=== PATIENT | female | born 1985 | race African-American/Black ===

== ENCOUNTER 2017-11-13 05:00 | Emergency (ER) | payer MEDICAID ==
[~2017-11-13] VITALS: Ht 165.1 cm; Wt 64.0 kg
[2017-11-13] MEDS ORDERED: MORPHINE SULFATE 4 MG/ML CPJ (NOT FOR IM USE) IV STA (05:56)
[2017-11-13] MEDS ORDERED: ONDANSETRON HCL 4MG/2ML VIAL IV STA (05:56)
[2017-11-13] MEDS ORDERED: SODIUM CHLORIDE 0.9% 1,000 ML IV ONE (05:56)
[2017-11-13 06:08] LABS: BASOPHILS % 0.3 % (0.0-2.0); HEMATOCRIT. 35.7 % (36.0-48.0); HEMOGLOBIN. 11.9 g/dL (12.0-16.0); INR 1.2; MEAN CORPUSCULAR HEMOGLOBIN 32.7 pg (28.0-32.0); MEAN CORPUSCULAR VOLUME 98.2 fL (81.0-99.0); MEAN PLATELET VOLUME 8.8 fl (7.4-10.4); NEUTROPHILS % 73.7 % (40.0-76.0); PLATELET 286 x1000/uL (130-400); RED BLOOD CELL COUNT 3.64 mill/uL (4.2-5.4); RED CELL DISTRIBUTION WIDTH 14.5 % (11.6-14.6)
[2017-11-13 06:09] LABS: CHLORIDE 99 mEq/L (98-107)
[2017-11-13 06:16] LABS: CLARITY URINE TURBID (CLEAR); COLOR URINE DARK YELLOW (YELLOW); KETONES URINE TRACE (NEGATIVE); LEUKOCYTE ESTERASE URINE 1+ (NEGATIVE); NITRITE URINE NEGATIVE (NEGATIVE); OCCULT BLOOD URINE 3+ (NEGATIVE); PH URINE 5.5 (4.5-8.0); PROTEIN URINE 2+ (NEGATIVE); SPECIFIC GRAVITY URINE 1.024 (1.005-1.030)
[2017-11-13 06:17] LABS: CARBON DIOXIDE 28 mEq/L (21-32)
[2017-11-13] MEDS ORDERED: IOHEXOL-300 100 ML BOTTLE ONE (06:40)
[2017-11-13] MEDS ORDERED: METRONIDAZOLE 500 MG PREMIX 100 ML IV ONE (10:15)
[2017-11-13] MEDS ORDERED: DOXYCYCLINE 100 MG in DEXT 5% WATER 100 ML IV SCH (10:15)
[2017-11-13] MEDS ORDERED: CEFOXITIN SODIUM 2 G in DEXT 5% WATER 100 ML IV SCH (10:15)
[2017-11-13 13:01] VITALS: BP 118/68
== END 2017-11-13 13:03 | disposition home or self-care (01) ==
LOC: ER 08:30
DX: N73.0 Acute parametritis and pelvic cellulitis (principal); N70.93 Salpingitis and oophoritis, unspecified
CPT/HCPCS: 36415; 71010; 74177; 76830; 76856; 80053; 81001; 81025; 83690; 84484; 85025; 85610; 87040; 87077; 87086; 87186; 87804; 93005; 96361; 96365; 96367; 96375; 99285; J0694; J2270; J2405; J3490; J7030; Q9967; Z7610; J7060